=== PATIENT | female | born 1980 | race African-American/Black ===

== ENCOUNTER 2018-01-30 12:57 | Emergency (ER) | payer OTHER ==
[~2018-01-30] VITALS: Ht 167.6 cm; Wt 76.7 kg
[2018-01-30] MEDS ORDERED: IV NORMAL SALINE 1,000ML 1,000 ML IV SCH (13:10)
--- NOTE | 2018-01-30 13:17 | PHYS DOC ---
Past History Past Medical History: No Pertinent History Past Surgical History: Appendectomy Smoking: Non-smoker Adult General Chief Complaint Chief Complaint: VAGINAL BLEEDING HPI HPI Patient presents to the emergency department for evaluation. She states that she is about 6 weeks , having delivered a baby via vaginal delivery in [facility] on December 22. She states that her bleeding gradually tapered off, she began having increased, heavy bleeding yesterday, and worsening pelvic cramping over the past 48 hours as well. She has not had any intercourse since delivering her baby. She has not had any fevers or chills, or any urinary symptoms. She has not had any nausea, or vomiting. There are no alleviating, or exacerbating factors to her symptoms. Review of Systems Review of Systems Constitutional: Denies fever or chills [] Eyes: Denies change in visual acuity, redness, or eye pain [] HENT: Denies nasal congestion or sore throat [] Respiratory: Denies cough or shortness of breath [] Cardiovascular: The patient denies any shortness of breath, chest pain, palpitations, or orthopnea [] GI: Denies abdominal pain, nausea, vomiting, bloody stools or diarrhea [] : Denies dysuria or hematuria. Reports pelvic cramping and vaginal bleeding. Denies other vaginal discharge. [] Musculoskeletal: Denies back pain or joint pain [] Integument: Denies rash or skin lesions [] Neurologic: Denies headache, focal weakness or sensory changes [] Endocrine: Denies polyuria or polydipsia [] All other systems were reviewed and found to be within normal limits, except as documented in this note. Current Medications Current Medications Current Medications Medications (Trade) Dose Ordered Sig/Lamont Start Time Stop Time Status Last Admin Dose Admin Ketorolac Tromethamine (Toradol) 30 mg 1X ONCE 01/30/18 13:15 01/30/18 13:16 UNV Sodium Chloride 1,000 ml @ 1,000 mls/hr Q1H 01/30/18 13:10 01/30/18 14:09 UNV Allergies Allergies Allergies Coded Allergies Type Severity Reaction Last Updated Verified No Known Drug Allergies 01/30/18 No Physical Exam Physical Exam PHYSICAL EXAM: CONSTITUTIONAL: Well developed, well nourished HEAD: normocephalic, atraumatic EENT: PERRL, EOMI. Conjunctivae normal color, sclerae non-icteric; moist mucous membranes. NECK: Supple, non-tender; no meningismus. LUNGS: Lungs CTA, breathing even and unlabored. Normal air movement. HEART: Regular rate and rhythm, no murmur CHEST: No deformity; non-tender ABDOMEN: The abdomen is soft, there is mild, diffuse tenderness to palpation, without focal tenderness, rebound, or guarding , no masses or bruits. EXTREM: Normal ROM; no deformity, no calf tenderness. Normal pulses palpable in all extremities. There is no pedal edema. SKIN: No rash; no diaphoresis NEURO: Alert; normal speech and cognition; CN's grossly intact; strength grossly intact without focal deficit. BACK: No CVA TTP. EKG EKG [] Radiology/Procedures Radiology/Procedures [PROCEDURE: US PELVIS EXAM: Pelvic sonogram. HISTORY: pelvic pain and bleeding. TECHNIQUE: Transabdominal sonographic imaging of the pelvis was performed. COMPARISON: None. FINDINGS: The uterus measures 9.7 x 7.9 x 5.1 cm. The endometrial stripe measures 3.1 mm in thickness. There is a trace amount of fluid within the endometrial cavity. There is no evidence of retained products of conception. The ovaries are normal in size and demonstrate normal blood flow. There is no pelvic free fluid. There are small ovarian follicles. IMPRESSION: 1. Trace amount of fluid within the endometrial cavity, consistent with reported vaginal bleeding. The endometrial stripe is thin. There is no evidence of retained products of conception. 2. Otherwise, unremarkable pelvic sonogram.] Course & Med Decision Making Course & Med Decision Making Pertinent Labs and Imaging studies reviewed. (See chart for details) [3:45 PM:Patient remains stable. I discussed test results, the need for close follow-up, and return precautions. I discussed expectant management, the need for OB follow-up, and use of acetaminophen for pain control. The patient is breast feeding.] Dragon Disclaimer Dragon Disclaimer This electronic medical record was generated, in whole or in part, using a voice recognition dictation system. Departure Departure: Impression: Primary Impression: Vaginal bleeding Disposition: 01 HOME, SELF-CARE Condition: STABLE Referrals: PCP,UNKNOWN (PCP) Patient Instructions: Abnormal Uterine Bleeding Additional Instructions: Follow-up with Dr. David Kinsey, Critical Care Nurse, call to schedule an appointment, KEVIN MEREDITH MD Jan 30, 2018 13:17
[2018-01-30 13:29] LABS: BASO % 1 % (0-3); EOS % 1 % (0-3); HEMATOCRIT 38.8 % (36.0-47.0); HEMOGLOBIN 12.3 g/dL (12.0-15.5); LYMPH # 1.9 x10^3/uL (1.0-4.8); LYMPH % 44 % (24-48); MEAN CORPUSCULAR HEMOGLOBIN 22 pg (25-35); MEAN CORPUSCULAR HGB CONC 32 g/dL (31-37); MEAN CORPUSCULAR VOLUME 70 fL (79-100); MONO # 0.3 x10^3/uL (0.0-1.1); MONO % 6 % (0-9); NEUT # 2.2 x10^3uL (1.8-7.7); NEUT % 49 % (31-73); PLATELET COUNT 165 x10^3/uL (140-400); RED BLOOD COUNT 5.56 x10^6/uL (3.50-5.40); RED CELL DISTRIBUTION WIDTH 14.6 % (11.5-14.5); WHITE BLOOD COUNT 4.4 x10^3/uL (4.0-11.0)
[2018-01-30] MEDS ORDERED: KETOROLAC 30 MG/ML VIAL. IV ONE (13:30)
[2018-01-30 13:48] LABS: ALBUMIN 3.8 g/dL (3.4-5.0); CALCIUM 9.1 mg/dL (8.5-10.1); CREATININE 0.8 mg/dL (0.6-1.0); GFR 97.1; POTASSIUM 3.9 mmol/L (3.5-5.1); TOTAL BILIRUBIN 0.9 mg/dL (0.2-1.0); TOTAL PROTEIN 7.7 g/dL (6.4-8.2)
[2018-01-30 14:11] LABS: HYPOCHROMIA MOD; PLT ESTIMATE ADEQUATE (ADEQUATE)
[2018-01-30 14:12] LABS: ANISOCYTOSIS SLIGHT; MICROCYTOSIS MOD
[2018-01-30 15:20] LABS: BILIRUBIN,URINE NEG (NEG); CLARITY,URINE TURBID; COLOR,URINE YELLOW; GLUCOSE,URINE NEG (NEG); NITRITE,URINE NEG (NEG); UROBILINOGEN,URINE 0.2 mg/dL (0.2 mg/dL)
[2018-01-30 15:21] LABS: BACTERIA,URINE FEW /HPF (0-FEW); RBC,URINE >40 /HPF (0-2); SQUAMOUS EPITHELIAL CELL,UR FEW /LPF
--- NOTE | 2018-01-30 15:39 | RAD ---
EXAM: Pelvic sonogram. HISTORY: pelvic pain and bleeding. TECHNIQUE: Transabdominal sonographic imaging of the pelvis was performed. COMPARISON: None. FINDINGS: The uterus measures 9.7 x 7.9 x 5.1 cm. The endometrial stripe measures 3.1 mm in thickness. There is a trace amount of fluid within the endometrial cavity. There is no evidence of retained products of conception. The ovaries are normal in size and demonstrate normal blood flow. There is no pelvic free fluid. There are small ovarian follicles. IMPRESSION: 1. Trace amount of fluid within the endometrial cavity, consistent with reported vaginal bleeding. The endometrial stripe is thin. There is no evidence of retained products of conception. 2. Otherwise, unremarkable pelvic sonogram. Electronically signed by: Yue Saldivar MD (01/30/2018 3:36 PM) [place] [id number]
[2018-01-30 15:52] VITALS: BP 138/82
== END 2018-01-30 15:54 | disposition home or self-care (01) ==
LOC: ER 12:57
DX: O72.1 Other immediate postpartum hemorrhage (principal); Z90.89 Acquired absence of other organs
CPT/HCPCS: 36415; 76856; 80053; 81001; 83690; 84702; 85025; 96374; 99285; J1885; J7030

== ENCOUNTER 2018-10-07 16:47 | Emergency (ER) | payer OTHER ==
[~2018-10-07] VITALS: Ht 167.6 cm; Wt 77.6 kg
[2018-10-07 17:07] VITALS: BP 130/93
[2018-10-07] MEDS ORDERED: LORA10TA68 PO (17:32)
[2018-10-07] MEDS ORDERED: FLUT9.9S NS (17:32)
--- NOTE | 2018-10-07 17:32 | PHYS DOC ---
Past History Past Medical History: No Pertinent History Past Surgical History: Appendectomy Smoking: Non-smoker Alcohol Use: None Drug Use: None Adult General Chief Complaint Chief Complaint: EARACHE/EAR PAIN HPI HPI Patient is a 38 year old female who presents with complaint of sinus pressure and right ear pain. Patient states that she was recently seen on September 24, 2018. Patient was diagnosed with upper respiratory infection and was started on amoxicillin therapy at that time. She states after completing the regimen she noticed improvement sinus symptoms, however she has been having continued nasal congestion. Patient used a Mari pot earlier today to try to help with congestion noted that she started to have significant pressure in her right sinus and right ear. She states that she came to the emergency department with significant right ear pain, however as she checked and she started to notice improvement symptoms. Has not had any further episodes of fever. States that she has been using daily fluticasone but does note that this bottle was given to her as a prescription several years ago. Is taking Benadryl at nighttime. Currently breast-feeding.[] Review of Systems Review of Systems Constitutional: Denies fever or chills [] Eyes: Denies change in visual acuity, redness, or eye pain [] HENT: Right ear pain, sinus pressure[] Respiratory: Denies cough or shortness of breath [] Cardiovascular: Denies chest pain or edema[] GI: Denies abdominal pain, nausea, vomiting, bloody stools or diarrhea [] : Denies dysuria or hematuria [] Musculoskeletal: Denies back pain or joint pain [] Integument: Denies rash or skin lesions [] Neurologic: Denies headache, focal weakness or sensory changes [] All other systems were reviewed and found to be within normal limits, except as documented in this note. Allergies Allergies Allergies Coded Allergies Type Severity Reaction Last Updated Verified No Known Drug Allergies 01/30/18 No Physical Exam Physical Exam Constitutional: Well developed, well nourished, no acute distress, non-toxic appearance. [] HENT: Normocephalic, atraumatic, bilateral external ears normal, oropharynx moist, no oral exudates, mild nasal mucosal edema, thin rhinorrhea. [] Eyes: PERRLA, EOMI, conjunctiva normal, no discharge. [] Neck: Normal range of motion, no tenderness, supple, no stridor. [] Cardiovascular:Heart rate regular rhythm, no murmur [] Lungs & Thorax: Bilateral breath sounds clear to auscultation [] Abdomen: Bowel sounds normal, soft, no tenderness, no masses, no pulsatile masses. [] Skin: Warm, dry, no erythema, no rash. [] Back: No tenderness, no CVA tenderness. [] Extremities: No tenderness, no cyanosis, no clubbing, ROM intact, no edema. [] Neurologic: Alert and oriented X 3, normal motor function, normal sensory function, no focal deficits noted. [] Current Patient Data Vital Signs Vital Signs Date Time Temp Pulse Resp B/P (MAP) Pulse Ox O2 Delivery O2 Flow Rate FiO2 10/07/18 17:07 98.1 81 18 100 Room Air Lab Results Not performed EKG EKG Not performed[] Radiology/Procedures Radiology/Procedures Not performed[] Course & Med Decision Making Course & Med Decision Making Pertinent Labs and Imaging studies reviewed. (See chart for details) Patient's examination shows no evidence of acute bacterial infection. Symptoms appear consistent with continued rhinitis. Advised that patient purchased a new bottle of fluticasone as the patient's older bottle may have less potency and thus not adequately treating the patient's symptoms. Also recommended adding Claritin daily to treatment regimen. Advised follow-up with primary doctor in 5-7 days for reevaluation and return to emergency department for any worsening symptoms. Patient was understanding and in agreement with treatment plan.[] Dragon Disclaimer Dragon Disclaimer This electronic medical record was generated, in whole or in part, using a voice recognition dictation system. Departure Departure: Impression: Primary Impression: Allergic rhinitis Disposition: HOME, SELF-CARE Condition: STABLE Referrals: PCP,NO (PCP) Patient Instructions: Allergic Rhinitis Additional Instructions: Follow-up with your primary doctor in the next 5-7 days if symptoms are not improving. Return to the emergency department for any worsening symptoms. Scripts Fluticasone Propionate (Flonase Allergy Relief) 9.9 Ml [place].susp 2 SPRAYS NS DAILY, #1 BOTTLE Prov: AVRIL MUNOZ MD 10/07/18 Loratadine (CLARITIN) 10 Mg Tablet 1 TAB PO DAILY, #30 TAB 0 Refills Prov: AVRIL MUNOZ MD 10/07/18 Problem Qualifiers Primary Impression: Allergic rhinitis Allergic rhinitis trigger: unspecified Allergic rhinitis seasonality: unspecified Qualified Codes: J30.9 - Allergic rhinitis, unspecified AVRIL MUNOZ MD Oct 07, 2018 17:32
== END 2018-10-07 17:39 | disposition home or self-care (01) ==
LOC: ER 16:47
DX: J30.9 Allergic rhinitis, unspecified (principal)
CPT/HCPCS: 99283

== ENCOUNTER 2019-01-16 15:15 | Emergency (ER) | payer OTHER ==
[~2019-01-16] VITALS: Ht 162.6 cm; Wt 79.8 kg
[~2019-01-16 15:15] MED LIST: FLUT9.9S NS; LORA10TA68 PO
[2019-01-16] MEDS ORDERED: ASPIRIN 325 MG TABLET PO ONE (15:30)
--- NOTE | 2019-01-16 15:44 | RAD ---
Chest, PA and Lateral: Technique: PA and lateral views of the chest were obtained. History: Chest pain. Comparison: None. Findings: The heart and pulmonary vasculature appear within normal limits. The lungs are clear. The pleural margins are clear. Impression: No acute chest process is seen. Electronically signed by: Angelito Betancourt MD (01/16/2019 3:41 PM) [id number]
[2019-01-16 16:00] LABS: BASO % 1 % (0-3); EOS % 0 % (0-3); HEMATOCRIT 39.6 % (36.0-47.0); HEMOGLOBIN 12.1 g/dL (12.0-15.5); LYMPH # 2.1 x10^3/uL (1.0-4.8); LYMPH % 41 % (24-48); MEAN CORPUSCULAR HEMOGLOBIN 22 pg (25-35); MEAN CORPUSCULAR HGB CONC 31 g/dL (31-37); MEAN CORPUSCULAR VOLUME 72 fL (79-100); MONO # 0.3 x10^3/uL (0.0-1.1); MONO % 6 % (0-9); NEUT # 2.7 x10^3uL (1.8-7.7); NEUT % 52 % (31-73); PLATELET COUNT 182 x10^3/uL (140-400); RED BLOOD COUNT 5.51 x10^6/uL (3.50-5.40); RED CELL DISTRIBUTION WIDTH 15.4 % (11.5-14.5); WHITE BLOOD COUNT 5.1 x10^3/uL (4.0-11.0)
[2019-01-16 16:26] LABS: ALBUMIN 3.9 g/dL (3.4-5.0); ALBUMIN/GLOBULIN RATIO 1.1 (1.0-1.7); ALK PHOS 80 U/L (46-116); ALT (SGPT) 14 U/L (14-59); AST (SGOT) 14 U/L (15-37); BLOOD UREA NITROGEN 9 mg/dL (7-20); BUN/CREATININE RATIO 13 (6-20); CALCIUM 9.2 mg/dL (8.5-10.1); CHLORIDE 106 mmol/L (98-107); CREATININE 0.7 mg/dL (0.6-1.0); GFR 112.7; GLUCOSE 114 mg/dL (70-99); POTASSIUM 3.7 mmol/L (3.5-5.1); SODIUM 141 mmol/L (136-145); TOTAL BILIRUBIN 0.5 mg/dL (0.2-1.0); TOTAL PROTEIN 7.5 g/dL (6.4-8.2)
--- NOTE | 2019-01-16 16:26 | PHYS DOC ---
Past History Past Medical History: No Pertinent History (FIDEL BOYER DO) Past Surgical History: No Surgical History (FIDEL BOYER DO) Smoking: Non-smoker Alcohol Use: None Drug Use: None (FIDEL BOYER DO) Adult General Chief Complaint Chief Complaint: CHEST PAIN HPI HPI 38-year-old female presents with report of left-sided upper chest pain which started yesterday. Reports some radiation to her left arm. Denies trauma. Denies cough, pleuritic pain, or shortness of breath. Denies fever or chills. Denies leg swelling or calf tenderness. Patient reports she has had before which went away. Reports she has been seen previously for same. Patient reports cardiac risk factors of family history of father with AMI in his 60s. Denies history of PE or DVT. Denies family history of PE or DVT. (FIDEL BOYER DO) Review of Systems Review of Systems Constitutional: Denies fever or chills Eyes: Denies redness or eye pain HENT: Denies nasal congestion or sore throat Respiratory: Denies cough or shortness of breath Cardiovascular: Reports chest pain; denies palpitations GI: Denies abdominal pain, nausea, or vomiting : Denies dysuria or hematuria Musculoskeletal: Denies back pain or joint pain Integument: Denies rash or skin lesions Neurologic: Denies headache, focal weakness or sensory changes Complete systems were reviewed and found to be within normal limits, except as documented in this note. (FIDEL BOYER DO) Current Medications Current Medications Current Medications Medications (Trade) Dose Ordered Sig/Lamont Start Time Stop Time Status Last Admin Dose Admin Aspirin (Will Aspirin) 325 mg 1X ONCE 01/16/19 15:30 01/16/19 15:36 DC 01/16/19 15:55 325 MG (FIDEL BOYER DO) Allergies Allergies Allergies Coded Allergies Type Severity Reaction Last Updated Verified No Known Drug Allergies 01/30/18 No (FIDEL BOYER DO) Physical Exam Physical Exam Constitutional: Well developed, well nourished, no acute distress, non-toxic appearance HENT: Normocephalic, atraumatic, oropharynx moist Eyes: PERRL, EOMI, conjunctiva normal, no discharge Neck: Normal range of motion, no tenderness, supple Cardiovascular: Heart rate normal, regular rhythm Lungs & Thorax: Bilateral breath sounds clear to auscultation, no wheezing, chest nontender to palpation Abdomen: Soft, no tenderness Skin: Warm, dry, no erythema, no rash Back: No tenderness, no CVA tenderness Extremities: No tenderness, ROM intact, no edema Neurologic: Alert and oriented X 3, no focal deficits noted Psychologic: Affect anxious, judgement normal (FIDEL BOYER DO) Current Patient Data Vital Signs Vital Signs Date Time Temp Pulse Resp B/P (MAP) Pulse Ox O2 Delivery O2 Flow Rate FiO2 01/16/19 15:38 99 18 99 Room Air Lab Results Laboratory Tests Test 01/16/19 15:31 White Blood Count 5.1 x10^3/uL (4.0-11.0) Red Blood Count 5.51 x10^6/uL (3.50-5.40) H Hemoglobin 12.1 g/dL (12.0-15.5) Hematocrit 39.6 % (36.0-47.0) Mean Corpuscular Volume 72 fL (79-100) L Mean Corpuscular Hemoglobin 22 pg (25-35) L Mean Corpuscular Hemoglobin Concent 31 g/dL (31-37) Red Cell Distribution Width 15.4 % (11.5-14.5) H Platelet Count 182 x10^3/uL (140-400) Neutrophils (%) (Auto) 52 % (31-73) Lymphocytes (%) (Auto) 41 % (24-48) Monocytes (%) (Auto) 6 % (0-9) Eosinophils (%) (Auto) 0 % (0-3) Basophils (%) (Auto) 1 % (0-3) Neutrophils # (Auto) 2.7 x10^3uL (1.8-7.7) Lymphocytes # (Auto) 2.1 x10^3/uL (1.0-4.8) Monocytes # (Auto) 0.3 x10^3/uL (0.0-1.1) Eosinophils # (Auto) 0.0 x10^3/uL (0.0-0.7) Basophils # (Auto) 0.0 x10^3/uL (0.0-0.2) Troponin I Quantitative < 0.017 ng/mL (0-0.055) (FIDEL BOYER DO) EKG EKG @1548 NSR at 80bpm, NO ST elevation (FIDEL BOYER DO) Radiology/Procedures Radiology/Procedures PROCEDURE: CHEST PA & LATERAL Chest, PA and Lateral: Technique: PA and lateral views of the chest were obtained. History: Chest pain. Comparison: None. Findings: The heart and pulmonary vasculature appear within normal limits. The lungs are clear. The pleural margins are clear. Impression: No acute chest process is seen. Electronically signed by: Angelito Betancourt MD (01/16/2019 3:41 PM) [facility] (FIDEL BOYER DO) Impressions: Chest, PA and Lateral: Technique: PA and lateral views of the chest were obtained. History: Chest pain. Comparison: None. Findings: The heart and pulmonary vasculature appear within normal limits. The lungs are clear. The pleural margins are clear. Impression: No acute chest process is seen. Electronically signed by: Angelito Betancourt MD (01/16/2019 3:41 PM) [facility] DICTATED AND SIGNED BY: ANGELITO BETANCOURT MD DATE: 01/16/19 154 CC: PCP,NO; FIDEL BOYER DO ~ (CLAIRE CATALAN DO) Course & Med Decision Making Course & Med Decision Making Pertinent Labs and Imaging studies reviewed. (See chart for details) Patient presents with report of left-sided chest pain with low cardiac risk factors. PE ruled out per PERC. EKG stable. Chest x-ray without acute process. Labs obtained and pending. Initial troponin negative. Sign out given to Dr. Catalan for further evaluation and final disposition. Discussed current findings and plan with patient, who acknowledges understanding and agreement. (FIDEL BOYER DO) Course & Med Decision Making The patient's second troponin was elevated at 0.129. Repeat EKG did not show ST elevations. I discussed the patient with Dr. Shaver, furniture crater and he has requested placing the patient on heparin and transferred her to [facility]. I discussed the patient with Dr. Christian, hospitalist and she has accepted the patient for transfer and admission. The patient is in agreement with this plan. She will go by ambulance. (CLAIRE CATALAN DO) Dragon Disclaimer Dragon Disclaimer This electronic medical record was generated, in whole or in part, using a voice recognition dictation system. (FIDEL BOYER DO) Departure Departure: Impression: Primary Impression: Chest pain Additional Impression: NSTEMI (non-ST elevated myocardial infarction) Disposition: 02 XFER SHT-TRM HOSP Condition: STABLE Referrals: PCP,NO (PCP) PERC Rule for PE PERC Rule for PE Response (Comments) Value Age > 50: No 0 HR > 100: No 0 Sa02 on room air <95%: No 0 Unilateral leg swelling: No 0 Hemoptysis: No 0 Recent surgery or trauma: No 0 Prior PE or DVT: No 0 Hormone use: No 0 Total 0 HEART Score for Chest Pain PTs The HEART Score for CP Pts HEART Score for Chest Pain: HEART Score for Chest Pain Response (Comments) Value History Slighlty/Non-Suspicious 0 ECG Normal 0 Age < 45 0 Risk Factors 1 or 2 Risk Factors 1 Troponin < Normal Limit 0 Total 1 Risk Factors: Risk Factors: DM, Current or recent (<one month) smoker, HTN, HLP, family history of CAD, obesity. Risk Scores: Score 0 - 3: 2.5% MACE over next 6 weeks - Discharge Home Score 4 - 6: 20.3% MACE over next 6 weeks - Admit for Clinical Observation Score 7 - 10: 72.7% MACE over next 6 weeks - Early Invasive Strategies (FIDEL BOYER DO) Problem Qualifiers Primary Impression: Chest pain Chest pain type: unspecified Qualified Codes: R07.9 - Chest pain, unspeci fied FIDEL BOYER DO Jan 16, 2019 16:26 CLAIRE CATALAN DO Jan 16, 2019 17:31
[2019-01-16 16:27] LABS: ANION GAP 8 (6-14); CARBON DIOXIDE 27 mmol/L (21-32); LIPASE 130 U/L (73-393); MAGNESIUM 1.8 mg/dL (1.8-2.4)
[2019-01-16 17:27] LABS: ANISOCYTOSIS SLIGHT; HYPOCHROMIA MOD; MICROCYTOSIS SLIGHT; PLT ESTIMATE ADEQUATE (ADEQUATE)
[2019-01-16] MEDS ORDERED: HEPARIN for IV BOLUS 10,000 UNIT/10 ML VIAL. IV PRN ×2 (19:00)
[2019-01-16] MEDS ORDERED: HEPARIN 25,000UTS/500ML PREMIX 500 ML IV PRN (19:00)
[2019-01-16] MEDS ORDERED: HEPARIN for IV BOLUS 10,000 UNIT/10 ML VIAL. IV ONE (19:15)
[2019-01-16 19:29] VITALS: BP 124/92
--- NOTE | 2019-01-17 06:46 | EKG ---
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
--- NOTE | 2019-01-17 06:47 | EKG ---
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
== END 2019-01-16 20:17 | disposition short-term general hospital (02) ==
LOC: ER 15:15
DX: I21.4 Non-ST elevation (NSTEMI) myocardial infarction (principal); R07.89 Other chest pain
CPT/HCPCS: 36415; 71046; 80053; 82553; 83690; 83735; 84484; 84702; 85025; 85610; 85730; 93005; 96365; 96366; 96376; 99285; J1644

== ENCOUNTER → 2019-02-24 | Outpatient (CLI) | payer OTHER ==
--- NOTE | 2019-02-24 08:12 | RAD ---
Examination: ABDOMEN LTD History: Epigastric and chest pain. Comparison/Correlation: None Findings: Right upper quadrant ultrasound exam was performed. Hepatic echotexture is normal. Proximal pancreas is normal. Distal pancreas is obscured by bowel gas. No right upper quadrant ascites. Portal venous flow is normal. Gallbladder wall thickness is 0.3 cm is noted. No cholelithiasis or pericholecystic fluid. No sonographic Vernon sign. Right kidney measures 12.2 cm x 4.6 cm. No right hydronephrosis. Common bile duct measures up to 0.4 cm diameter. Impression: No suspicious process. Unremarkable exam. Electronically signed by: Bal Garcia MD (02/24/2019 8:09 AM) [facility]
== END | disposition home or self-care (01) ==
LOC: US 07:36
PROVIDERS: ATTEND Internal Medicine Gastroenterology
DX: R10.13 Epigastric pain (principal); R07.9 Chest pain, unspecified
CPT/HCPCS: 76705

== ENCOUNTER 2019-04-07 20:03 | Emergency (ER) | payer OTHER ==
[~2019-04-07] VITALS: Ht 162.6 cm; Wt 77.1 kg
[2019-04-07] MEDS ORDERED: KETOROLAC 30 MG/ML VIAL. IV ONE (21:00)
[2019-04-07] MEDS ORDERED: IV NORMAL SALINE 1,000ML 1,000 ML IV ONE (21:00)
[2019-04-07 21:22] VITALS: BP 130/88
--- NOTE | 2019-04-07 22:09 | PHYS DOC ---
Past History Past Medical History: Migraines Past Surgical History: Appendectomy, Other Additional Past Surgical Histo: HERNIA Smoking: Non-smoker Alcohol Use: None Drug Use: None Adult General Chief Complaint Chief Complaint: HEADACHE HPI HPI Patient is a 38 year old female who presents with complaint of migraine headache. Patient states her headache started yesterday. Has history of migraine headaches. States that she has associated sensitivity to light. Has taken Tylenol with no relief in symptoms. States that she is currently breast- feeding. Her child is currently 15 months old. States that the headache is constant and throbbing. Came to the emergency department as Tylenol does not seem to be resolving her headache. States that she does follow with a neurologist as outpatient for migraine headaches. States that currently she is off most of her medications as she is currently breast-feeding. Denies any unilateral weakness, vision loss, fever, nausea, or vomiting. Review of Systems Review of Systems Constitutional: Denies fever or chills [] Eyes: Photophobia, denies change in visual acuity, redness, or eye pain [] HENT: Denies nasal congestion or sore throat [] Respiratory: Denies cough or shortness of breath [] Cardiovascular: Denies chest pain or edema[] GI: Denies abdominal pain, nausea, vomiting, bloody stools or diarrhea [] : Denies dysuria or hematuria [] Musculoskeletal: Denies back pain or joint pain [] Integument: Denies rash or skin lesions [] Neurologic: Headache, denies focal weakness or sensory changes [] All other systems were reviewed and found to be within normal limits, except as documented in this note. Current Medications Current Medications Current Medications Medications (Trade) Dose Ordered Sig/Lamont Start Time Stop Time Status Last Admin Dose Admin Ketorolac Tromethamine (Toradol 30mg Vial) 30 mg 1X ONCE 04/07/19 21:00 04/07/19 21:12 DC 04/07/19 21:10 30 MG Sodium Chloride 1,000 ml @ 1,000 mls/hr 1X ONCE 04/07/19 21:00 04/07/19 21:59 DC 04/07/19 21:09 1,000 MLS/HR Allergies Allergies Allergies Coded Allergies Type Severity Reaction Last Updated Verified No Known Drug Allergies 01/30/18 No Physical Exam Physical Exam Constitutional: Alert, afebrile, appears in moderate discomfort. [] HENT: Normocephalic, atraumatic, bilateral external ears normal, oropharynx moist, no oral exudates, nose normal. [] Eyes: PERRLA, EOMI, mild photophobia present, conjunctiva normal, no discharge. [] Neck: Normal range of motion, no tenderness, supple, no stridor. [] Cardiovascular:Heart rate regular rhythm, no murmur [] Lungs & Thorax: Bilateral breath sounds clear to auscultation [] Abdomen: Bowel sounds normal, soft, no tenderness, no masses, no pulsatile masses. [] Skin: Warm, dry, no erythema, no rash. [] Back: No tenderness, no CVA tenderness. [] Extremities: No tenderness, no cyanosis, no clubbing, ROM intact, no edema. [] Neurologic: Alert and oriented X 3, normal motor function, normal sensory function, no focal deficits noted. [] Current Patient Data Vital Signs Vital Signs Date Time Temp Pulse Resp B/P (MAP) Pulse Ox O2 Delivery O2 Flow Rate FiO2 04/07/19 21:22 63 16 130/88 (102) 100 Room Air 04/07/19 20:20 98.4 Lab Results Not performed EKG EKG Not performed[] Radiology/Procedures Radiology/Procedures Not performed[] Course & Med Decision Making Course & Med Decision Making Pertinent Labs and Imaging studies reviewed. (See chart for details) Patient treated with IV fluids and IV Toradol. Patient at this time reports significant improvement in headache symptoms and states that she would like to go home at this time. Recommended use of ibuprofen 400-600 mg by mouth every 6 hours as needed for headache symptoms in addition to Tylenol and magnesium that she is early taking. Recommended follow-up with primary doctor in 2-3 days for reevaluation. Recommended return to the emergency department for any worsening symptoms. Patient was understanding and in agreement with treatment plan.[] Dragon Disclaimer Dragon Disclaimer This electronic medical record was generated, in whole or in part, using a voice recognition dictation system. Departure Departure: Impression: Primary Impression: Migraine headache Disposition: 01 HOME, SELF-CARE Condition: IMPROVED Referrals: SERENA BEAN MD (PCP) Patient Instructions: Migraine Headache Additional Instructions: You may take ibuprofen 400-600 mg by mouth every 6 hours as needed for headache in addition to Tylenol and magnesium that your already taking. Follow-up with your primary doctor in the next 2-3 days for reevaluation. Return to the emergency department for any worsening symptoms. Problem Qualifiers Primary Impression: Migraine headache Migraine type: unspecified Status migrainosus presence: without status migrainosus Intractability: not intractable Qualified Codes: G43.909 - Migraine, unspecified, not intractable, without status migrainosus AVRIL MUNOZ MD Apr 07, 2019 22:09
== END 2019-04-07 22:20 | disposition home or self-care (01) ==
LOC: ER 20:03
DX: G43.909 Migraine, unspecified, not intractable, without status migrainosus (principal)
CPT/HCPCS: 96374; 99284; J1885; J7030

== ENCOUNTER 2019-05-17 13:21 | Emergency (ER) | payer OTHER ==
[~2019-05-17] VITALS: Ht 162.6 cm; Wt 81.4 kg
--- NOTE | 2019-05-17 13:47 | EKG ---
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
[2019-05-17] MEDS ORDERED: ASPIRIN 81 MG TAB.CHEW PO ONE (14:00)
[2019-05-17] MEDS ORDERED: KETOROLAC 30 MG/ML VIAL. IV ONE (14:00)
[2019-05-17 14:06] LABS: BASO % 0 % (0-3); EOS % 0 % (0-3); HEMATOCRIT 39.9 % (36.0-47.0); HEMOGLOBIN 12.5 g/dL (12.0-15.5); LYMPH # 2.6 x10^3/uL (1.0-4.8); LYMPH % 53 % (24-48); MEAN CORPUSCULAR HEMOGLOBIN 23 pg (25-35); MEAN CORPUSCULAR HGB CONC 31 g/dL (31-37); MEAN CORPUSCULAR VOLUME 72 fL (79-100); MONO # 0.4 x10^3/uL (0.0-1.1); MONO % 7 % (0-9); NEUT % 40 % (31-73); PLATELET COUNT 159 x10^3/uL (140-400); RED BLOOD COUNT 5.56 x10^6/uL (3.50-5.40); RED CELL DISTRIBUTION WIDTH 14.8 % (11.5-14.5)
[2019-05-17 14:12] LABS: ALBUMIN 3.9 g/dL (3.4-5.0); CREATININE 0.8 mg/dL (0.6-1.0); POTASSIUM 4.1 mmol/L (3.5-5.1); TOTAL BILIRUBIN 0.3 mg/dL (0.2-1.0); TOTAL PROTEIN 7.7 g/dL (6.4-8.2)
[2019-05-17 14:13] LABS: GFR 96.6
[2019-05-17 14:28] LABS: ANISOCYTOSIS SLIGHT; HYPOCHROMIA MOD; MICROCYTOSIS MOD; PLT ESTIMATE ADEQUATE (ADEQUATE)
--- NOTE | 2019-05-17 14:45 | RAD ---
Exam performed: One view chest. Indication: Chest pain Date of Service: 05/17/2019 1:52 PM Comparison: Two-view chest from January 16, 2019. Single AP upright portable view chest findings: Cardiomediastinal silhouette is within limits of normal. No acute infiltrates, effusion or pneumothorax is detected. The bony structures are normal. Impression: No acute cardiopulmonary process is detected. Electronically signed by: Jadyn Flores MD (05/17/2019 2:42 PM) [facility]
--- NOTE | 2019-05-17 14:54 | PHYS DOC ---
Past History Past Medical History: Anxiety, Migraines Past Surgical History: Appendectomy, Other Additional Past Surgical Histo: HERNIA Smoking: Non-smoker Alcohol Use: None Drug Use: None Adult General Chief Complaint Chief Complaint: CHEST PAIN HPI HPI 38-year-old female presents with sharp left-sided chest pain. She states this started about 4-5 hours ago. She denies any shortness of breath or dyspnea on exertion. She's not had any cough or congestion. She states she was admitted recently to [facility] with a similar pain was in the hospital for a few days had a negative stress test and it was determined that it was noncardiac in nature. She does have a history of anxiety and she says she wasn't particularly anxious this morning.[] Review of Systems Review of Systems Constitutional: Denies fever or chills [] Eyes: Denies change in visual acuity, redness, or eye pain [] HENT: Denies nasal congestion or sore throat [] Respiratory: Denies cough or shortness of breath [] Cardiovascular: No additional information not addressed in HPI [] GI: Denies abdominal pain, nausea, vomiting, bloody stools or diarrhea [] : Denies dysuria or hematuria [] Musculoskeletal: Denies back pain or joint pain [] Integument: Denies rash or skin lesions [] Neurologic: Denies headache, focal weakness or sensory changes [] Endocrine: Denies polyuria or polydipsia [] All other systems were reviewed and found to be within normal limits, except as documented in this note. Current Medications Current Medications Current Medications Medications (Trade) Dose Ordered Sig/Lamont Start Time Stop Time Status Last Admin Dose Admin Aspirin (Children'S Aspirin) 324 mg 1X ONCE 05/17/19 14:00 05/17/19 14:01 DC 05/17/19 14:07 324 MG Ketorolac Tromethamine (Toradol 30mg Vial) 30 mg 1X ONCE 05/17/19 14:00 05/17/19 14:01 DC 05/17/19 14:08 30 MG Allergies Allergies Allergies Coded Allergies Type Severity Reaction Last Updated Verified No Known Drug Allergies 01/30/18 No Physical Exam Physical Exam Constitutional: Well developed, well nourished, no acute distress, non-toxic appearance. [] HENT: Normocephalic, atraumatic, bilateral external ears normal, oropharynx moist, no oral exudates, nose normal. [] Eyes: PERRLA, EOMI, conjunctiva normal, no discharge. [] Neck: Normal range of motion, no tenderness, supple, no stridor. [] Cardiovascular:Heart rate regular rhythm, no murmur [] Lungs & Thorax: Bilateral breath sounds clear to auscultation [] Abdomen: Bowel sounds normal, soft, no tenderness, no masses, no pulsatile masses. [] Skin: Warm, dry, no erythema, no rash. [] Back: No tenderness, no CVA tenderness. [] Extremities: No tenderness, no cyanosis, no clubbing, ROM intact, no edema. [] Neurologic: Alert and oriented X 3, normal motor function, normal sensory function, no focal deficits noted. [] Psychologic: Anxious. [] Current Patient Data Vital Signs Vital Signs Date Time Temp Pulse Resp B/P (MAP) Pulse Ox O2 Delivery O2 Flow Rate FiO2 05/17/19 13:25 98.5 82 16 100 Room Air 05/17/19 13:21 106/67 (80) Lab Results Laboratory Tests Test 05/17/19 13:37 White Blood Count 5.0 x10^3/uL (4.0-11.0) Red Blood Count 5.56 x10^6/uL (3.50-5.40) H Hemoglobin 12.5 g/dL (12.0-15.5) Hematocrit 39.9 % (36.0-47.0) Mean Corpuscular Volume 72 fL (79-100) L Mean Corpuscular Hemoglobin 23 pg (25-35) L Mean Corpuscular Hemoglobin Concent 31 g/dL (31-37) Red Cell Distribution Width 14.8 % (11.5-14.5) H Platelet Count 159 x10^3/uL (140-400) Neutrophils (%) (Auto) 40 % (31-73) Lymphocytes (%) (Auto) 53 % (24-48) H Monocytes (%) (Auto) 7 % (0-9) Eosinophils (%) (Auto) 0 % (0-3) Basophils (%) (Auto) 0 % (0-3) Neutrophils # (Auto) 2.0 x10^3uL (1.8-7.7) Lymphocytes # (Auto) 2.6 x10^3/uL (1.0-4.8) Monocytes # (Auto) 0.4 x10^3/uL (0.0-1.1) Eosinophils # (Auto) 0.0 x10^3/uL (0.0-0.7) Basophils # (Auto) 0.0 x10^3/uL (0.0-0.2) Platelet Estimate Adequate (ADEQUATE) Large Platelets Occ Hypochromasia Mod Anisocytosis Slight Microcytosis Mod D-Dimer (Nadine) 0.34 mg/L (0.00-0.50) Sodium Level 140 mmol/L (136-145) Potassium Level 4.1 mmol/L (3.5-5.1) Chloride Level 103 mmol/L (98-107) Carbon Dioxide Level 29 mmol/L (21-32) Anion Gap 8 (6-14) Blood Urea Nitrogen 12 mg/dL (7-20) Creatinine 0.8 mg/dL (0.6-1.0) Estimated GFR (Cockcroft-Gault) 96.6 BUN/Creatinine Ratio 15 (6-20) Glucose Level 108 mg/dL (70-99) H Calcium Level 9.0 mg/dL (8.5-10.1) Total Bilirubin 0.3 mg/dL (0.2-1.0) Aspartate Amino Transferase (AST) 12 U/L (15-37) L Alanine Aminotransferase (ALT) 15 U/L (14-59) Alkaline Phosphatase 79 U/L (46-116) Troponin I Quantitative < 0.017 ng/mL (0-0.055) Total Protein 7.7 g/dL (6.4-8.2) Albumin 3.9 g/dL (3.4-5.0) Albumin/Globulin Ratio 1.0 (1.0-1.7) EKG EKG EKG: Normal sinus rhythm rate of [address]-T changes[] Radiology/Procedures Radiology/Procedures [] Impressions: PROCEDURE: CHEST AP ONLY Exam performed: One view chest. Indication: Chest pain Date of Service: 05/17/2019 1:52 PM Comparison: Two-view chest from January 16, 2019. Single AP upright portable view chest findings: Cardiomediastinal silhouette is within limits of normal. No acute infiltrates, effusion or pneumothorax is detected. The bony structures are normal. Impression: No acute cardiopulmonary process is detected. Course & Med Decision Making Course & Med Decision Making Pertinent Labs and Imaging studies reviewed. (See chart for details) [ED course: Evaluation reveals a 38-year-old female with atypical sounding chest pain. Her workup in the emergency department including laboratory studies, EKG and chest x-ray were all unrevealing. She was given Toradol which did help alleviate her symptoms. I reassured the patient this was noncardiac in nature and she is safe to follow with her primary care physician as an outpatient if this continues to be a problem for her.] Dragon Disclaimer Dragon Disclaimer This electronic medical record was generated, in whole or in part, using a voice recognition dictation system. Departure Departure: Impression: Primary Impression: Non-cardiac chest pain Disposition: 01 HOME, SELF-CARE Condition: STABLE Referrals: SERENA BEAN MD (PCP) Patient Instructions: Chest Pain (Nonspecific) Additional Instructions: Return to the emergency department with any new or concerning symptoms JANEE GRUBBS DO May 17, 2019 14:54
[2019-05-17 14:58] VITALS: BP 106/78
== END 2019-05-17 15:00 | disposition home or self-care (01) ==
LOC: ER 13:21
DX: R07.89 Other chest pain (principal); F41.9 Anxiety disorder, unspecified; G43.909 Migraine, unspecified, not intractable, without status migrainosus
CPT/HCPCS: 36415; 71045; 80053; 84484; 85025; 85379; 93005; 96374; 99285; J1885

== ENCOUNTER 2019-11-13 20:07 | Emergency (ER) | payer OTHER ==
[~2019-11-13] VITALS: Ht 162.6 cm; Wt 81.4 kg
[2019-11-13] MEDS ORDERED: ASPIRIN CHEWABLE 81 MG TABLET. PO ONE (20:20)
--- NOTE | 2019-11-13 20:39 | PHYS DOC ---
Past History Past Medical History: Anxiety, Migraines Past Surgical History: Appendectomy, Other Additional Past Surgical Histo: HERNIA Smoking: Non-smoker Alcohol Use: None Drug Use: None General Adult EDM: Chief Complaint: CHEST PAIN HPI: HPI: 39-year-old female presents with chest pain. The pain started this morning. It is a tightness. She now has radiation of the pain in her left arm and jaw. The pain is not better or worse with exertion. She denies shortness of breath or diaphoresis. The patient was seen in this facility with an elevated troponin within the last few months. She was transferred to [facility] and a stress test was negative. Patient states the pain was moderate in intensity at its worst, and is now mild. She is feeling a bit better at this time versus earlier. This evening, the pain is been coming and going in waves versus being constant. She denies fever chills. She has been taking her blood pressure medicine as prescribed from her last hospitalization. Review of Systems: Review of Systems: Constitutional: Denies fever or chills Eyes: Denies change in visual acuity HENT: Denies nasal congestion or sore throat Respiratory: Denies cough or shortness of breath Cardiovascular: Denies chest pain or edema GI: Denies abdominal pain, nausea, vomiting, bloody stools or diarrhea : Denies dysuria Musculoskeletal: Chest pain Integument: Denies rash Neurologic: Denies headache, focal weakness or sensory changes Endocrine: Denies polyuria or polydipsia Lymphatic: Denies swollen glands Psychiatric: Denies depression or anxiety Heart Score: HEART Score for Chest Pain: HEART Score for Chest Pain Response (Comments) Value History Moderately Suspicious 1 ECG Normal 0 Age >45 - < 65 1 Risk Factors 1 or 2 Risk Factors 1 Total 3 Risk Factors: Risk Factors: DM, Current or recent (<one month) smoker, HTN, HLP, family history of CAD, obesity. Risk Scores: Score 0 - 3: 2.5% MACE over next 6 weeks - Discharge Home Score 4 - 6: 20.3% MACE over next 6 weeks - Admit for Clinical Observation Score 7 - 10: 72.7% MACE over next 6 weeks - Early Invasive Strategies Current Medications: Current Meds: Current Medications Medications (Trade) Dose Ordered Sig/Lamont Start Time Stop Time Status Last Admin Dose Admin Aspirin (Aspirin Chewable) 324 mg 1X ONCE 11/13/19 20:20 11/13/19 20:21 DC Allergies: Allergies: Allergies Coded Allergies Type Severity Reaction Last Updated Verified No Known Drug Allergies 01/30/18 No Physical Exam: PE: Constitutional: Well developed, obese, well nourished, no acute distress, non- toxic appearance. [] HENT: Normocephalic, atraumatic, bilateral external ears normal, oropharynx moist, no oral exudates, nose normal. [] Eyes: PERRLA, EOMI, conjunctiva normal, no discharge. [] Neck: Normal range of motion, no tenderness, supple, no stridor. [] Cardiovascular: Heart rate regular rhythm, no murmur [] Lungs & Thorax: Bilateral breath sounds clear to auscultation [] Abdomen: Bowel sounds normal, soft, no tenderness, no masses, no pulsatile masses. [] Skin: Warm, dry, no erythema, no rash. [] Back: No tenderness, no CVA tenderness. [] Extremities: No tenderness, no cyanosis, no clubbing, ROM intact, no edema. [] Neurologic: Alert and oriented X 3, normal motor function, normal sensory function, no focal deficits noted. [] Psychologic: Affect normal, judgement normal, mood normal. [] Current Patient Data: Vital Signs: Vital Signs Date Time Temp Pulse Resp B/P (MAP) Pulse Ox O2 Delivery O2 Flow Rate FiO2 11/13/19 20:19 98.2 68 16 116/77 (90) 100 Room Air EKG: EKG: [] Radiology/Procedures: Radiology/Procedures: [] Impressions: INDICATION: Chest pain COMPARISON: May 17, 2019 FINDINGS: Single view of chest obtained. Cardiac silhouette is similar to prior. No definite focal airspace consolidation or pulmonary edema. IMPRESSION: * No focal airspace consolidation or edema. Electronically signed by: Marin Guaman MD (11/13/2019 9:04 PM) [id number] DICTATED AND SIGNED BY: MARIN GUAMAN MD DATE: 11/13/19 2104 CC: CLAIRE CATALAN DO; SERENA BEAN MD ~ Course & Med Decision Making: Course & Med Decision Making Pertinent Labs and Imaging studies reviewed. (See chart for details) The patient's labs are unremarkable except for some mild anemia. Her troponin is negative. Her EKG is unremarkable. Her chest x-ray is negative for acute findings. The patient's pain has improved. She is stable for discharge at this time. [] Dragon Disclaimer: Dragon Disclaimer: This electronic medical record was generated, in whole or in part, using a voice recognition dictation system. Departure Departure: Impression: Primary Impression: Chest pain Qualified Codes: R07.9 - Chest pain, unspecified Disposition: HOME/RESIDENCE PRIOR TO ADM Condition: STABLE Referrals: SERENA BEAN MD (PCP) Patient Instructions: Chest Pain (Nonspecific), [id number] CLAIRE CATALAN DO November 13, 2019 20:39
[2019-11-13 20:43] LABS: BASO % 1 % (0-3); EOS % 1 % (0-3); HEMATOCRIT 37.1 % (36.0-47.0); HEMOGLOBIN 11.5 g/dL (12.0-15.5); LYMPH # 2.9 x10^3/uL (1.0-4.8); LYMPH % 47 % (24-48); MEAN CORPUSCULAR HEMOGLOBIN 22 pg (25-35); MEAN CORPUSCULAR HGB CONC 31 g/dL (31-37); MEAN CORPUSCULAR VOLUME 71 fL (79-100); MONO # 0.4 x10^3/uL (0.0-1.1); MONO % 7 % (0-9); NEUT # 2.7 x10^3uL (1.8-7.7); NEUT % 44 % (31-73); PLATELET COUNT 175 x10^3/uL (140-400); RED BLOOD COUNT 5.21 x10^6/uL (3.50-5.40); RED CELL DISTRIBUTION WIDTH 14.8 % (11.5-14.5); WHITE BLOOD COUNT 6.1 x10^3/uL (4.0-11.0)
[2019-11-13 20:55] LABS: CALCIUM 8.6 mg/dL (8.5-10.1); CREATININE 0.8 mg/dL (0.6-1.0); GFR 96.1; POTASSIUM 3.5 mmol/L (3.5-5.1)
[2019-11-13 21:00] LABS: ALBUMIN 3.5 g/dL (3.4-5.0); TOTAL BILIRUBIN 0.2 mg/dL (0.2-1.0)
[2019-11-13 21:04] LABS: HYPOCHROMIA MOD; PLT ESTIMATE ADEQUATE (ADEQUATE); POLYCHROMASIA SLIGHT
[2019-11-13 21:05] LABS: MICROCYTOSIS MOD
--- NOTE | 2019-11-13 21:07 | RAD ---
INDICATION: Chest pain COMPARISON: May 17, 2019 FINDINGS: Single view of chest obtained. Cardiac silhouette is similar to prior. No definite focal airspace consolidation or pulmonary edema. IMPRESSION: * No focal airspace consolidation or edema. Electronically signed by: Erik Guaman MD (11/13/2019 9:04 PM) [id number]
[2019-11-13 21:34] LABS: BARBITURATES NEG (NEG); BENZODIAZEPINES NEG (NEG); CANNABINOIDS NEG (NEG); CLARITY,URINE CLEAR; COCAINE NEG (NEG); COLOR,URINE YELLOW; METHADONE NEG (NEG); OPIATES NEG (NEG); PHENCYCLIDINE NEG (NEG)
[2019-11-13 21:35] LABS: BACTERIA,URINE 0 /HPF (0-FEW); BILIRUBIN,URINE NEG (NEG); GLUCOSE,URINE NEG (NEG); NITRITE,URINE NEG (NEG); RBC,URINE OCC /HPF (0-2); SQUAMOUS EPITHELIAL CELL,UR OCC /LPF; UROBILINOGEN,URINE 0.2 mg/dL (0.2 mg/dL); WBC,URINE OCC /HPF (0-4)
[2019-11-13 21:41] LABS: AMPHETAMINE/METHAMPHETAMINE NEG (NEG)
[2019-11-13 22:01] VITALS: BP 118/56
--- NOTE | 2019-11-16 07:09 | EKG ---
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
== END 2019-11-13 22:00 | disposition home or self-care (01) ==
LOC: ER 20:07
DX: R07.89 Other chest pain (principal); F41.9 Anxiety disorder, unspecified; G43.909 Migraine, unspecified, not intractable, without status migrainosus
CPT/HCPCS: 36415; 71045; 80053; 80307; 81001; 84484; 85025; 93005; 99285

== ENCOUNTER 2020-01-13 20:44 | Emergency (ER) | payer OTHER ==
[~2020-01-13] VITALS: Ht 162.6 cm; Wt 87.0 kg
[2020-01-13] MEDS ORDERED: KETOROLAC 30 MG/ML VIAL. IM ONE (21:15)
[2020-01-13] MEDS ORDERED: HYDROcodone/APAP 5/325MG 1 TAB TABLET PO ONE (21:15)
[2020-01-13] MEDS ORDERED: ORPHENADRINE CITRATE 60 MG/2 ML VIAL. IM ONE (21:15)
[2020-01-13] MEDS ORDERED: DEXAMETHASONE 4 MG TABLET PO ONE (21:15)
[2020-01-13] MEDS ORDERED: HYDR-3165 PO (21:17)
[2020-01-13] MEDS ORDERED: IBUP-571 PO (21:17)
[2020-01-13] MEDS ORDERED: ORPH-16 PO (21:17)
[2020-01-13] MEDS ORDERED: PRED20TA PO (21:17)
--- NOTE | 2020-01-13 21:17 | PHYS DOC ---
Past History Past Medical History: Anxiety, Migraines Past Surgical History: Appendectomy, Other Additional Past Surgical Histo: HERNIA Smoking: Non-smoker Alcohol Use: None Drug Use: None General Adult EDM: Chief Complaint: LOWER EXT PAIN HPI: HPI: 39-year-old female presents with 2-day history of bilateral leg pain. Reports pain is intermittent and shooting in nature. Reports some associated tingling. Denies trauma. Denies back pain. Denies loss of bowel bladder. Denies leg swelling. Denies history or family history of DVT/PE. Review of Systems: Review of Systems: Constitutional: Denies fever or chills Eyes: Denies redness or eye pain HENT: Denies nasal congestion or sore throat Respiratory: Denies cough or shortness of breath Cardiovascular: Denies chest pain or palpitations GI: Denies abdominal pain, nausea, or vomiting : Denies dysuria or hematuria Musculoskeletal: Reports bilateral leg pain; denies back or neck pain Integument: Denies rash or skin lesions Neurologic: Denies headache, focal weakness or sensory changes; denies loss of bowel/bladder Complete systems were reviewed and found to be within normal limits, except as documented in this note. Allergies: Allergies: Allergies Coded Allergies Type Severity Reaction Last Updated Verified No Known Drug Allergies 01/30/18 No Physical Exam: PE: Constitutional: Well developed, well nourished, no acute distress, non-toxic appearance HENT: Normocephalic, atraumatic Eyes: Conjunctiva normal, no discharge Neck: Normal range of motion, supple Cardiovascular: Bilateral DP and PTs +2, CR < 2 sec to bilateral feet Lungs & Thorax: No respiratory distress, equal chest rise and fall Skin: Warm, dry, no erythema, no rash Back: No midline tenderness, no CVA tenderness Extremities: No focal tenderness, ROM intact, no edema Neurologic: Alert and oriented X 3, normal motor function, normal sensory function, no focal deficits noted Psychologic: Affect normal, judgment normal Current Patient Data: Vital Signs: Vital Signs Date Time Temp Pulse Resp B/P (MAP) Pulse Ox O2 Delivery O2 Flow Rate FiO2 01/13/20 20:44 98.2 78 18 138/92 (107) 99 Room Air EKG: EKG: [] Radiology/Procedures: Radiology/Procedures: [] Course & Med Decision Making: Course & Med Decision Making Patient presents with report of bilateral leg pain which is intermittent and shooting in nature. Denies back pain. Denies loss of bowel or bladder. Denies trauma. Denies fever or chills. Limb neurovascularly intact. No signs of DVT appreciated. Symptoms more likely secondary to sciatica. Symptomatic treatment provided with oral dexamethasone and [place] as well as IM Norflex and ketorolac. Patient stable for discharge with outpatient follow-up with PCP/pain management. Pain management referral provided. Discussed findings and plan with patient, who acknowledges understanding and agreement. Dimitris Disclaimer: Dimitris Disclaimer: This electronic medical record was generated, in whole or in part, using a voice recognition dictation system. Departure Departure: Impression: Primary Impression: Sciatica Qualified Codes: M54.31 - Sciatica, right side; M54.32 - Sciatica, left side Disposition: HOME/RESIDENCE PRIOR TO ADM Condition: STABLE Referrals: SERENA BEAN MD (PCP) Patient Instructions: Sciatica, [id number] Additional Instructions: Please call and make an appointment to be seen by: Dr. Ramiro Kim Address: [address] [place] [address] Scripts Prednisone (PREDNISONE) 20 Mg Tablet 2 TAB PO DAILY for Sciatica, #8 TAB Start this prescription tomorrow, 01/14/20 Prov: FIDEL BOYER DO 01/13/20 Hydrocodone Bit/Acetaminophen (NORCO 5-325 TABLET) 1 Each Tablet 0.5-1 TAB PO Q6HRS PRN for PAIN, #10 TAB Prov: FIDEL BOYER DO 01/13/20 Orphenadrine Citrate (ORPHENADRINE CITRATE) 100 Mg Tablet.er 1 TAB PO BID PRN for MUSCLE PAIN, #14 TAB 0 Refills Prov: FIDEL BOYER DO 01/13/20 Ibuprofen (Ibu) 600 Mg Tablet 1 TAB PO Q8HRS PRN for PAIN, #30 TAB 0 Refills Prov: FIDEL BOYER DO 01/13/20 Justification of Admission: Justification of Admission: Justification of Admission Dx: N/A FIDEL BOYER DO Jan 13, 2020 21:17
[2020-01-13 21:57] VITALS: BP 132/92
== END 2020-01-13 21:45 | disposition home or self-care (01) ==
LOC: ER 20:44
DX: M54.31 Sciatica, right side (principal); M54.32 Sciatica, left side; R20.0 Anesthesia of skin; F41.9 Anxiety disorder, unspecified; G43.909 Migraine, unspecified, not intractable, without status migrainosus; Z90.89 Acquired absence of other organs; Z98.890 Other specified postprocedural states
CPT/HCPCS: 96372; 99284; J1885; J2360; J8540

== ENCOUNTER 2020-12-10 21:24 | Emergency (ER) | payer OTHER ==
[~2020-12-10] VITALS: Ht 162.6 cm; Wt 77.3 kg
[~2020-12-10 21:24] MED LIST changes: +HYDR-3165 PO; +IBUP-571 PO; +ORPH-16 PO; +PRED20TA PO
[2020-12-10] MEDS ORDERED: MORPHINE SULFATE 2 MG/ML DISP.SYRIN. IV ONE (21:45)
[2020-12-10] MEDS ORDERED: IV RINGERS SOLUTION,LACTATED 1,000 ML IV ONE (21:45)
[2020-12-10] MEDS ORDERED: ONDANSETRON PF 4 MG/2 ML VIAL. IVP ONE (21:45)
[2020-12-10] MEDS ORDERED: PROCHLORPERAZINE 10 MG/2 ML VIAL. IV ONE (21:45)
[2020-12-10] MEDS ORDERED: diphenhydrAMINE 50 MG/ML VIAL IVP ONE (21:45)
[2020-12-10] MEDS ORDERED: KETOROLAC 15 MG/ML VIAL. IVP ONE (21:45)
[2020-12-10] MEDS ORDERED: DEXAMETHASONE SOD PHOS 4 MG/ML VIAL. IVP ONE (21:45)
--- NOTE | 2020-12-10 21:45 | PHYS DOC ---
Past History Past Medical History: Anxiety, Migraines Past Surgical History: Appendectomy, Other Additional Past Surgical Histo: HERNIA Smoking: Non-smoker Alcohol Use: None Drug Use: None Adult General Chief Complaint Chief Complaint: HEADACHE HPI HPI Patient is a 40-year-old female with a past medical history significant for migraines who presents with migraine. States it has been going on approximately 1 to 2 days, whole head, 7 out of 10, dull and achy in nature with some photophobia, and nausea but no vomiting. States she is taking her normal migraine cocktail at home with only minimal relief. States she had a recent MRI and is currently seeing a neurologist for migraine management. Denies any recent traumas, travels, fevers, neck pain, chest pain, shortness of breath, abdominal pain, vomiting, dysuria, hematuria or blood in the stool. Denies any alcohol or drug use. Denies any tobacco use. Denies any nu mbness/weakness/tingling. Denies any trouble sitting, standing or walking. Denies any confusion. Denies any slurred speech or facial droop. Review of Systems Review of Systems Review of systems otherwise unremarkable except noted in HPI Allergies Allergies Allergies Coded Allergies Type Severity Reaction Last Updated Verified No Known Drug Allergies 01/30/18 No Physical Exam Physical Exam Constitutional: Well developed, well nourished, no acute distress, non-toxic appearance. [] HENT: Normocephalic, atraumatic, bilateral external ears normal, oropharynx moist, no oral exudates, nose normal. [] Eyes: PERRLA, EOMI, conjunctiva normal, no discharge. [] Neck: Normal range of motion, no tenderness, supple, no stridor. [] Cardiovascular:Heart rate regular rhythm, no murmur [] Lungs & Thorax: Bilateral breath sounds clear to auscultation [] Abdomen: soft, no tenderness, no masses, no pulsatile masses. [] Skin: Warm, dry, no erythema, no rash. [] Back: No tenderness, no CVA tenderness. [] Extremities: No tenderness, no cyanosis, no clubbing, ROM intact, no edema. [] Neurologic: Alert and oriented X 3, normal motor function, normal sensory function, no focal deficits noted. [] Psychologic: Affect normal, judgement normal, mood normal. [] EKG EKG [] Radiology/Procedures Radiology/Procedures [] Heart Score C/O Chest Pain: No Risk Factors: Risk Factors: DM, Current or recent (<one month) smoker, HTN, HLP, family history of CAD, obesity. Risk Scores: Risk Factors: DM, Current or recent (<one month) smoker, HTN, HLP, family history of CAD, obesity. Course & Med Decision Making Course & Med Decision Making Patient is a 40-year-old female who presents with apparent migraine for the last 1 to 2 days Vital signs not concerning. Physical exam noted above. Urine negative. Given headache cocktail. Negative . Lights turned off and patient allowed to rest. On reassessment patient stated her headache had resolved, she was feeling much better and was ready to go home and go to bed. Alert and oriented no acute distress with no focal neurologic deficits, able to sit, stand and walk without issue. Advised to follow-up with primary care physician on Saturday. Gave return precautions to the ED. Patient grateful, verbalized understanding and agreed with plan of discharge. Dragon Disclaimer Dragon Disclaimer This electronic medical record was generated, in whole or in part, using a voice recognition dictation system. Departure Departure: Impression: Primary Impression: Migraine Referrals: SERENA BEAN MD (PCP) Patient Instructions: Migraine Headache Additional Instructions: Thank you for coming into the emergency department today to allow us to take care of you. Your vital signs were reassuring as was your neurologic exam. You are given a migraine cocktail and fluid here in the emergency department and allowed to rest. On reexamination you stated that she felt better and was ready to be discharged home which is wonderful. Please call your primary care physician first thing Saturday morning to update on ED visit and set up a follow- up visit. Please come back to the emergency department immediately with new or concerning symptoms as discussed. CHITRA QUINTANA MD Dec 10, 2020 21:45
[2020-12-10] MEDS ORDERED: flagyl (22:48)
[2020-12-10] MEDS ORDERED: metoprolol (22:48)
[2020-12-10] MEDS ORDERED: ZOLM5TAB13 PO (22:48)
[2020-12-11] VITALS: BP 122/68
== END 2020-12-10 23:43 | disposition home or self-care (01) ==
LOC: ER 21:24
DX: G43.909 Migraine, unspecified, not intractable, without status migrainosus (principal); F41.9 Anxiety disorder, unspecified
CPT/HCPCS: 81025; 96361; 96374; 96375; 99284; J0780; J1100; J1200; J1885; J2270; J2405; J7120

== ENCOUNTER 2020-12-15 18:17 | Emergency (ER) | payer OTHER ==
[~2020-12-15] VITALS: Ht 162.6 cm; Wt 77.3 kg
[~2020-12-15 18:17] MED LIST changes: +ZOLM5TAB13 PO; +flagyl; +metoprolol
--- NOTE | 2020-12-15 19:03 | PHYS DOC ---
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 Patient states that she was seen in the emergency department last week and received the cocktail that had helped her a lot. Patient said that she has been having increasing number of similar migraine headache. Her headache associated with left temporal as well as occipital, sharp and shooting pain in nature. 10 out of 10 at severe. She does associate with photophobia as well as mild nausea. She has taken her Zomig. She also has taken her metoprolol as prescribed by her neurologist. She denies any visual changes, neuropathy, paresthesia. She has undergone full work-up including MRI of the brain. 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 She is going to see a neurologist in [place]. Previously patient responded to morphine, dexamethasone, Toradol, Zofran, Benadryl, IV fluids and Phenergan cocktail. Patient denies any other symptoms including chest pain, shortness of breath, palpitation, URI symptoms, bowel or bladder problems. Review of Systems Review of Systems Constitutional: Denies fever or chills [] Eyes: Denies change in visual acuity, redness, or eye pain [] HENT: Denies nasal congestion or sore throat [] Respiratory: Denies cough or shortness of breath [] Cardiovascular: No additional information not addressed in HPI [] GI: Denies abdominal pain, nausea, vomiting, bloody stools or diarrhea [] : Denies dysuria or hematuria [] Musculoskeletal: Denies back pain or joint pain [] Integument: Denies rash or skin lesions [] Neurologic: Report recurrent headache, denies any focal weakness or sensory changes [] Endocrine: Denies polyuria or polydipsia [] All other systems were reviewed and found to be within normal limits, except as documented in this note. Allergies Allergies Allergies Coded Allergies Type Severity Reaction Last Updated Verified No Known Drug Allergies 01/30/18 No Physical Exam Physical Exam Constitutional: Well developed, well nourished, no acute distress, non-toxic appearance. [] HENT: Normocephalic, atraumatic, bilateral external ears normal, oropharynx moist, no oral exudates, nose normal. [] Eyes: PERRLA, EOMI, conjunctiva normal, no discharge. [] Neck: Normal range of motion, no tenderness, supple, no stridor. [] Cardiovascular:Heart rate regular rhythm, no murmur [] Lungs & Thorax: Bilateral breath sounds clear to auscultation [] Abdomen: Bowel sounds normal, soft, no tenderness, no masses, no pulsatile masses. [] Skin: Warm, dry, no erythema, no rash. [] Back: No tenderness, no CVA tenderness. [] Extremities: No tenderness, no cyanosis, no clubbing, ROM intact, no edema. [] Neurologic: Alert and oriented X 3, normal motor function, normal sensory function, no focal deficits noted. [] Psychologic: Affect normal, judgement normal, mood normal. [] Current Patient Data Vital Signs Vital Signs Date Time Temp Pulse Resp B/P (MAP) Pulse Ox O2 Delivery O2 Flow Rate FiO2 12/15/20 18:39 98.4 83 16 131/88 (102) 99 Room Air EKG EKG [] Radiology/Procedures Radiology/Procedures [] Heart Score C/O Chest Pain: N/A Risk Factors: Risk Factors: DM, Current or recent (<one month) smoker, HTN, HLP, family history of CAD, obesity. Risk Scores: Risk Factors: DM, Current or recent (<one month) smoker, HTN, HLP, family history of CAD, obesity. Course & Med Decision Making Course & Med Decision Making Patient received cocktail for migraine headache. Her headache improved from 10 out of 10 to 2 out of 10. She is very to go home. I advised patient that this is temporary treatment. She is going to see her neurologist in [place]. She is to continue to take her Zomig. She was sent on anti-inflammatory naproxen and antiemetics Zofran for symptomatic treatment only. She understands and agrees to treatment plan of care. Dragon Disclaimer Dragon Disclaimer This electronic medical record was generated, in whole or in part, using a voice recognition dictation system. Departure Departure: Impression: Primary Impression: Migraine headache with aura Disposition: HOME / SELF CARE / HOMELESS Condition: GOOD Referrals: SERENA BEAN MD (PCP) Additional Instructions: Please have close follow-up with your primary care provider as well as neurologist. Follow-up with your primary care provider in 3 to 5 days. Then see your neurologist in 1 to 2 weeks. You may need further diagnostic work-up as well as new treatment plan as you are having increasing frequency of your headache which is migraine type. Scripts Naproxen (NAPROXEN) 500 Mg Tablet 1 TAB PO BID for pain for 20 Days, #40 TAB 0 Refills Prov: HERMES CACERES MD 12/15/20 Ondansetron Hcl (ZOFRAN) 4 Mg Tablet 1 TAB PO Q6HRS for nausea for 5 Days, #20 TAB Prov: HERMES CACERES MD 12/15/20 HERMES CACERES MD Dec 15, 2020 19:03
[2020-12-15] MEDS ORDERED: KETOROLAC 15 MG/ML VIAL. IVP ONE (19:45)
[2020-12-15] MEDS ORDERED: diphenhydrAMINE 50 MG/ML VIAL IVP ONE (19:45)
[2020-12-15] MEDS ORDERED: DEXAMETHASONE SOD PHOS 4 MG/ML VIAL. IVP ONE (19:45)
[2020-12-15] MEDS ORDERED: IV RINGERS SOLUTION,LACTATED 1,000 ML IV ONE ×2 (19:45)
[2020-12-15] MEDS ORDERED: MORPHINE SULFATE 2 MG/ML DISP.SYRIN. IV ONE (19:45)
[2020-12-15] MEDS ORDERED: ONDANSETRON PF 4 MG/2 ML VIAL. IVP ONE (19:45)
[2020-12-15] MEDS ORDERED: NAPR-514 PO (20:49)
[2020-12-15] MEDS ORDERED: ONDA4TAB7 PO (20:49)
[2020-12-15 20:50] VITALS: BP 128/88
== END 2020-12-15 21:05 | disposition home or self-care (01) ==
LOC: ER 18:17
DX: G43.909 Migraine, unspecified, not intractable, without status migrainosus (principal); F41.9 Anxiety disorder, unspecified; I10 Essential (primary) hypertension; I25.2 Old myocardial infarction
CPT/HCPCS: 96361; 96374; 96375; 99284; J1100; J1200; J1885; J2270; J2405; J7120

== ENCOUNTER → 2021-01-24 | Outpatient (CLI) | payer OTHER ==
[~2021-01-24] MED LIST changes: +NAPR-514 PO; +ONDA4TAB7 PO
--- NOTE | 2021-01-24 10:45 | RAD ---
PROCEDURE: MG BILAT SCREEN+LANEY HISTORY: The patient is 40 years old and is seen for Reason: SCREENING / Spl. Instructions: / Histor y: . COMPARISON: None. This is a baseline exam. TECHNIQUE: CC and MLO views of both breasts were obtained. Images were processed by the [employer] computer-aided detection system. DENSITY: The breast parenchyma is extremely dense, which could obscure a lesion on mammography. FINDINGS: No developing mass, suspicious calcifications or architectural distortion. IMPRESSION: Negative. No evidence of malignancy. Recommend annual screening mammograms per [employer] [employer] guidelines. She will be due in one year. BI-RADS category 1 Negative Patient entered into a reminder system for annual screening mammogram. Electronically signed by: Wilner Darling DO (01/24/2021 10:42 AM) [id number]
== END ==
LOC: MAMMO 07:43
PROVIDERS: ATTEND Nurse Practitioner Family
DX: Z12.31 Encounter for screening mammogram for malignant neoplasm of breast (principal)
CPT/HCPCS: 77063; 77067

== ENCOUNTER 2021-02-26 19:22 | Emergency (ER) | payer OTHER ==
[~2021-02-26] VITALS: Ht 162.6 cm; Wt 78.9 kg
[2021-02-26 20:05] VITALS: BP 128/76
[2021-02-26] MEDS ORDERED: DEXAMETHASONE 4 MG TABLET PO ONE (20:15)
--- NOTE | 2021-02-26 20:21 | PHYS DOC ---
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 Neeraj es any recent traumas, travels, fevers, chest pain, shortness of breath, abdominal pain, nausea, vomiting. States has tried some Benadryl which only helps for short time. Cannot identify any new skin contacts such as soaps, perfumes or lotions. States she had not had a chance to see your doctor yet. States it is only under her armpits. Review of Systems Review of Systems Review of systems otherwise unremarkable except noted in the HPI Allergies Allergies Allergies Coded Allergies Type Severity Reaction Last Updated Verified No Known Drug Allergies 01/30/18 No Physical Exam Physical Exam Constitutional: Well developed, well nourished, no acute distress, non-toxic appearance. [] HENT: Normocephalic, atraumatic, bilateral external ears normal, oropharynx moist, no oral exudates, nose normal. [] Cardiovascular:Heart rate regular rhythm, no murmur [] Lungs & Thorax: Bilateral breath sounds clear to auscultation [] Skin: Warm, dry, no erythema, no rash. [] Extremities: No tenderness, ROM intact, no edema. [] Neurologic: Alert and oriented X 3, no focal deficits noted. [] Psychologic: Affect normal, judgement normal, mood normal. [] Current Patient Data Vital Signs Vital Signs Date Time Temp Pulse Resp B/P (MAP) Pulse Ox O2 Delivery O2 Flow Rate FiO2 02/26/21 20:05 97.2 88 16 128/76 99 Room Air EKG EKG [] Radiology/Procedures Radiology/Procedures [] Heart Score C/O Chest Pain: No Risk Factors: Risk Factors: DM, Current or recent (<one month) smoker, HTN, HLP, family history of CAD, obesity. Risk Scores: Risk Factors: DM, Current or recent (<one month) smoker, HTN, HLP, family history of CAD, obesity. Course & Med Decision Making Course & Med Decision Making Patient 40-year-old female who presents with itching under her axilla Vital signs not concerning. Physical exam noted above. Given steroids for possible contact dermatitis. Discussed differential diagnosis as well including tinea. Advised on topical antifungal shampoo. Advised to follow-up in the morning with primary care physician. Gave return precautions to the ED. Patient grateful, verbalized understanding agree with plan of discharge. Dragon Disclaimer Dragon Disclaimer This electronic medical record was generated, in whole or in part, using a voice recognition dictation system. Departure Departure: Impression: Primary Impression: Itching with irritation Referrals: SERENA BEAN MD (PCP) Patient Instructions: Contact Dermatitis, Seborrheic Dermatitis, Tinea Versicolor (Yeast Infection of the Skin) Additional Instructions: Thank you for coming into the emergency department tonight and allowing us to take care of you. Please follow-up in the morning first thing with your primary care physician update on ED visit and set up a follow-up. As discussed, some of the things that could be causing your itching would be a contact dermatitis or fungal infection. Please stop and get the shampoo we discussed and use as we discussed. Please continue to use your [employer] keep the area clean and dry. You can also use Benadryl at nighttime as needed as we discussed. Please call your primary care physician first thing in the morning to update on your ED visit and set up a follow-up as soon as possible. Please come back to the ED with new or concerning symptoms as discussed. CHITRA QUINTANA MD Feb 26, 2021 20:20
== END 2021-02-26 20:44 | disposition home or self-care (01) ==
LOC: ER 19:22
DX: L29.9 Pruritus, unspecified (principal); F41.9 Anxiety disorder, unspecified; I10 Essential (primary) hypertension; I25.2 Old myocardial infarction; G43.909 Migraine, unspecified, not intractable, without status migrainosus
CPT/HCPCS: 99283; J8540